=== PATIENT | female | born 1950 | race Hispanic/Latino ===

== ENCOUNTER 2017-08-08 11:46 | Day surgery (SDC) | payer MEDICARE ==
[2017-08-07 14:13] VITALS: BMI 27.8
--- OUTSIDE RECORDS SUMMARY | 2017-08-08 11:51 | XMS | Clinical Summary ---
:1950 Author Organization [facility] Address [address] [place] [address] Phone Care Team Providers Name Role Phone , Primary Care Provider Unavailable Allergies Not on File Current Medications Not on file Active Problems Not on file Social History Tobacco Use Types Packs/Day Years Used Date Never Assessed Sex Assigned at Date Recorded Not on file Last Filed Vital Signs Not on file Plan of Treatment Not on file Results Not on filefrom Last 3 Months
[2017-08-08] MEDS ORDERED: Lidocaine Viscous Sol 2% 15 ml UD Cup ONE (12:32)
[2017-08-08] MEDS ORDERED: Lidocaine 1% PF 5 ML VIAL ONE (12:50)
[2017-08-08] MEDS ORDERED: Propofol 200 MG/20 ML VIAL ONE (12:50)
[2017-08-08 13:02] LABS: ALT (SGPT) 22 U/L (8-55); AST (SGOT) 22 U/L (5-34); Alkaline Phosphatase 182 U/L (40-150); Anion Gap 12 mmol/L (10-20); BUN (Urea Nitrogen) 12 mg/dL (9.8-20.1); Bilirubin, Total 1.4 mg/dL (0.2-1.2); Calc. Creatinine Clearance 77 mL/min (70-130); Calcium 9.4 mg/dL (7.8-10.44); Carbon Dioxide 26 mmol/L (23-31); Chloride 102 mmol/L (98-107); Estimated GFR-MDRD 73; Globulin 3.4 g/dL (2.4-3.5); Protein, Total 6.9 g/dL (6.0-8.3)
--- NOTE | 2017-08-08 17:13 | OP ---
DATE OF PROCEDURE: 08/08/2017 PROCEDURE: Esophagogastroduodenoscopy. PREOPERATIVE DGIAGNOSES: 1. Cirrhosis. 2. History of esophageal varices, banded in 03/2017. 3. History of gastric varices. 4. Nonalcoholic fatty liver disease. 5. History of hepatic encephalopathy. POSTOPERATIVE DIAGNOSES: 1. Examination to second portion of duodenum. 2. Three columns of grade I/II distal esophageal varices, most obvious at 30-35 cm from the incisor s. 3. No evidence of active bleeding in the upper gastrointestinal tract. 4. Grossly normal stomach, nonbleeding gastric varix in the fundus, approximately 1 x 2 cm in size. 5. Normal duodenum. PROCEDURE IN DETAIL: Written informed consent was obtained. The patient was brought to the endosco py suite. Total intravenous anesthesia was provided by Dr. Jesus Manuel Wynn and associates. The [facility] ient was placed in the left lateral decubitus position. A bite block was inserted into the mouth. A [employer] video diagnostic gastroscope was introduced into the oral cavity and the esophagus was easi ly intubated. The gastroscope was advanced under direct visualization to the second portion of the duodenum. Endoscopic findings revealed grade I/II distal esophageal varices, starting at 30 cm from the incisors. Three columns were identified and none were actively bleeding. The varices flattene d easily with insufflation. Because of the small size, it was decided that no banding would be perf ormed today. The endoscope was advanced into the stomach, and the stomach appeared grossly normal e xcept for a stable gastric varix near the cardia. It measured about 1 cm x 2 cm in size and demonst rated no stigmata of recent bleeding. The duodenum from the bulb to the second portion was then ins pected and appeared grossly normal. The stomach was decompressed as the endoscope was removed from the patient. She was transferred to the day stay surgery area for post-procedure monitoring. There were no immediate complications. RECOMMENDATIONS: 1. Continue nadolol 40 mg daily for primary prevention of variceal bleeding. 2. Add metronidazole 250 mg p.o. t.i.d. for 3 weeks until the situation with Xifaxan approval is re solved. 3. Repeat EGD in 6 months. 4. Follow up with me in the office in 4-5 months.
== END 2017-08-08 13:44 | disposition home or self-care (01) ==
LOC: SDC 11:46
PROVIDERS: ATTEND Internal Medicine Gastroenterology
PROC: 0DJ08ZZ Inspection of Upper Intestinal Tract, Via Natural or Artificial Opening Endoscopic (ICD-10-PCS; principal; 2017-08-08)
DX: K74.60 Unspecified cirrhosis of liver (principal); K75.81 Nonalcoholic steatohepatitis (NASH); K76.6 Portal hypertension; I85.10 Secondary esophageal varices without bleeding; I86.4 Gastric varices; K29.50 Unspecified chronic gastritis without bleeding; K31.89 Other diseases of stomach and duodenum; K72.90 Hepatic failure, unspecified without coma; T47.3X5A Adverse effect of saline and osmotic laxatives, initial encounter; R60.9 Edema, unspecified; E11.9 Type 2 diabetes mellitus without complications; F32.9 Major depressive disorder, single episode, unspecified; F41.9 Anxiety disorder, unspecified; Z79.899 Other long term (current) drug therapy
CPT/HCPCS: 36415; 80053; 83036; J2001; J2704

== ENCOUNTER 2021-09-26 20:13 | Inpatient (IN) | payer MEDICARE ==
[2021-09-26] MEDS ORDERED: cefTRIAXone\\ROCEPHIN 1 GM VIAL ONE (20:39)
[2021-09-26 20:40] LABS: #Eosinphils 0.2 thou/uL (0.0-0.7); #Lymphocytes 1.7 thou/uL (1.20-3.40); #Monocytes 0.8 thou/uL (0.11-0.59); #Neutrophils 9.6 thou/uL (1.40-6.50); %Eosinophils 1.3 % (0.0-10.0); %Lymphocytes 14.1 % (21.0-51.0); %Monocytes 6.1 % (0.0-10.0); %Neutrophils 78.5 % (42.0-75.0); Hemoglobin 10.1 g/dL (12.0-16.0); Mean Corpuscular HGB CONC 34.3 g/dL (32.0-36.0); Mean Corpuscular Hemoglobin 30.4 pg (27.0-31.0); Mean Corpuscular Volume 88.6 fL (78.0-98.0); Mean Platelet Volume 7.9 fL (7.4-10.4); Platelet Count 164 thou/uL (130-400); RBC Distribution Width 13.2 % (11.5-14.5); Red Blood Cell (RBC) Count 3.33 mill/uL (4.20-5.40); White Blood Cell (WBC) Count 12.2 thou/uL (4.8-10.8)
[2021-09-26] MEDS ORDERED: Pantoprazole 40 MG VIAL IVP SCH (21:00)
[2021-09-26 21:04] LABS: ALT (SGPT) 17 U/L (8-55); AST (SGOT) 17 U/L (5-34); Albumin 3.1 g/dL (3.4-4.8); Alkaline Phosphatase 164 U/L (40-110); Anion Gap 14 mmol/L (10-20); BUN (Urea Nitrogen) 28 mg/dL (9.8-20.1); Bilirubin, Total 0.9 mg/dL (0.2-1.2); Calc. Creatinine Clearance 0 mL/min (70-130); Calcium 8.7 mg/dL (7.8-10.44); Carbon Dioxide 23 mmol/L (23-31); Glucose 469 mg/dL (80-115); Potassium 4.2 mmol/L (3.5-5.1); Protein, Total 6.1 g/dL (5.8-8.1)
[2021-09-26 21:12] LABS: Chloride 99 mmol/L (98-107); Sodium 132 mmol/L (136-145)
[2021-09-26] MEDS ORDERED: Pantoprazole 80 MG, Admixture Fee 1 EACH in Sodium Chloride 0.9% 100 ML IVPB SCH (21:15)
[2021-09-26] MEDS ORDERED: Insulin Regular 300 UNITS/3 ML VIAL ONE (22:48)
[2021-09-26] MEDS ORDERED: Ondansetron PF 4 MG/2 ML Vial IVP PRN (23:02)
[2021-09-26] MEDS ORDERED: Acetaminophen 325 MG TAB PO PRN (23:02)
[2021-09-26] MEDS ORDERED: Dextrose 50% Abboject 50 ML SYRINGE SLOW IVP PRN (23:14)
[2021-09-26] MEDS ORDERED: Dextrose 5% in Water 1,000 ML IV PRN (23:14)
[2021-09-26] MEDS ORDERED: HumaLOG 300 UNITS/3 ML VIAL SC PRN (23:14)
[2021-09-26] MEDS ORDERED: Octreotide Acetate 1,250 MCG in Sodium Chloride 0.9% 250 ML 250 ML IVPB SCH (23:15)
[2021-09-26] MEDS ORDERED: Octreotide Acetate 50 MCG/ML AMP SLOW IVP SCH (23:15)
[2021-09-26] MEDS ORDERED: Ondansetron PF 4 MG/2 ML Vial ONE ×2 (23:16→23:23)
[2021-09-26] MEDS ORDERED: Acetaminophen 500 MG TAB ONE (23:16)
[2021-09-26] MEDS ORDERED: Lactated Ringer's 1,000 ML IV SCH (23:45)
[2021-09-27 00:28] LABS: INR-International Normal Ratio 1.2; PTT 29.9 sec (22.9-36.1); Prothrombin Time 15.6 sec (12.0-14.7)
[2021-09-27 00:32] LABS: SARS-CoV-2 NAA Rapid Test DETECTED (NotDetected)
[2021-09-27 01:27] VITALS: BMI 38.2
[2021-09-27] MEDS: Lactated Ringer's 1,000 ML IV SCH ×2 (01:43→09:01)
[2021-09-27 04:20] LABS: ALT (SGPT) 14 U/L (8-55); AST (SGOT) 16 U/L (5-34); Albumin 2.6 g/dL (3.4-4.8); Alkaline Phosphatase 127 U/L (40-110); Anion Gap 10 mmol/L (10-20); BUN (Urea Nitrogen) 22 mg/dL (9.8-20.1); Bilirubin, Total 1.2 mg/dL (0.2-1.2); Calc. Creatinine Clearance 112 mL/min (70-130); Calcium 8.1 mg/dL (7.8-10.44); Carbon Dioxide 24 mmol/L (23-31); Chloride 106 mmol/L (98-107); Globulin 2.6 g/dL (2.4-3.5); Glucose 302 mg/dL (80-115); Potassium 3.8 mmol/L (3.5-5.1); Protein, Total 5.2 g/dL (5.8-8.1); Sodium 136 mmol/L (136-145)
[2021-09-27 05:43] LABS: #Eosinphils 0.1 thou/uL (0.0-0.7); #Lymphocytes 1.3 thou/uL (1.20-3.40); #Monocytes 0.5 thou/uL (0.11-0.59); #Neutrophils 5.9 thou/uL (1.40-6.50); %Basophils 0.2 % (0.0-1.0); %Eosinophils 1.3 % (0.0-10.0); %Lymphocytes 16.6 % (21.0-51.0); %Monocytes 6.5 % (0.0-10.0); %Neutrophils 75.5 % (42.0-75.0); Hemoglobin 9.3 g/dL (12.0-16.0); Mean Corpuscular HGB CONC 34.3 g/dL (32.0-36.0); Mean Corpuscular Hemoglobin 30.6 pg (27.0-31.0); Mean Corpuscular Volume 89.3 fL (78.0-98.0); Mean Platelet Volume 8.4 fL (7.4-10.4); Platelet Count 107 thou/uL (130-400); Platelet Morphology Comment Appears Decreased; RBC Distribution Width 12.9 % (11.5-14.5); Red Blood Cell (RBC) Count 3.03 mill/uL (4.20-5.40); White Blood Cell (WBC) Count 7.8 thou/uL (4.8-10.8)
[2021-09-27] MEDS: HumaLOG 300 UNITS/3 ML VIAL SC PRN ×2 (05:48→11:27)
[2021-09-27] MEDS: Pantoprazole 80 MG in Sodium Chloride 0.9% 100 ML IVP SCH ×2 (05:53→11:27)
[2021-09-27 06:45] LABS: Hemoglobin 9.1 g/dL (12.0-16.0)
[2021-09-27 10:39] LABS: Hemoglobin A1c 9.6 % (4.0-6.0)
[2021-09-27] MEDS ORDERED: Bupropion 150 MG XL TAB PO SCH (11:00)
[2021-09-27 11:56] LABS: Hemoglobin 9.4 g/dL (12.0-16.0)
[2021-09-27 19:59] VITALS: TEMP 98.4
[2021-09-27] MEDS ORDERED: Citalopram 20 MG TAB PO SCH (21:00)
[2021-09-27] MEDS ORDERED: Lantus 1000 UNITS/10 ML VIAL SC SCH (21:00)
[2021-09-28] MEDS ORDERED: Levothyroxine Sodium 50 MCG TAB PO SCH (06:00)
[2021-09-28] MEDS ORDERED: Bupropion 150 MG XL TAB PO SCH (09:00)
[2021-10-04] MEDS ORDERED: Ergocalciferol 1.25 MG(50,000 UNITS) CAP PO SCH (09:00)
== END 2021-09-27 17:00 | disposition short-term general hospital (02) | DRG 299 ==
LOC: ERS 20:13 → IMCU/EMU 23:46
PROVIDERS: ADMIT Emergency Medicine; ATTEND Emergency Medicine
PROC: 30233N1 Transfusion of Nonautologous Red Blood Cells into Peripheral Vein, Percutaneous Approach (ICD-10-PCS; 2021-09-26)
PROC: 0DJ08ZZ Inspection of Upper Intestinal Tract, Via Natural or Artificial Opening Endoscopic (ICD-10-PCS; principal; 2021-09-27)
DX: I86.4 Gastric varices (principal); U07.1 COVID-19; K92.2 Gastrointestinal hemorrhage, unspecified; D62 Acute posthemorrhagic anemia; I85.10 Secondary esophageal varices without bleeding; E11.9 Type 2 diabetes mellitus without complications; I10 Essential (primary) hypertension; K74.60 Unspecified cirrhosis of liver; K76.0 Fatty (change of) liver, not elsewhere classified; E03.9 Hypothyroidism, unspecified; E78.5 Hyperlipidemia, unspecified; Z79.899 Other long term (current) drug therapy; Z90.49 Acquired absence of other specified parts of digestive tract; Z90.710 Acquired absence of both cervix and uterus; Z90.89 Acquired absence of other organs
CPT/HCPCS: 36415; 36416; 36430; 80053; 83036; 84443; 85014; 85018; 85025; 85610; 85730; 86850; 86900; 86901; 93005; C9113; J0696; J1815; J2354; J2405; J3490; J7050; J7120; P9016; U0002